=== PATIENT | female | born 1965 | race Caucasian/White ===

== ENCOUNTER 2019-12-03 20:07 | Inpatient (IN) ==
[2019-12-03] MEDS ORDERED: Ipratropium/Albuterol Neb 3 ML IH ONE (20:15)
[2019-12-03] MEDS ORDERED: Dexamethasone 4 MG/ML VIAL IVP STA (20:17)
[2019-12-03 20:34] LABS: INR 0.9; Prothrombin Time 10.6 Seconds (9.4-12.1)
[2019-12-03 20:36] LABS: Activated Partial Thrombo Time 29.5 Seconds (26.0-36.0)
[2019-12-03 20:41] LABS: Basophils % 0.1 %; Hematocrit 41.6 % (35.3-44.9); Immature Granulocytes % 0.6 % (0-4); Lymphocytes # 0.9 K/mcL (0.6-4.6); Lymphocytes % 5.3 %; Mean Corpuscular HGB Conc 31.3 g/dL (31.6-35.5); Mean Corpuscular Hemoglobin 30.9 pg (28.0-33.3); Mean Corpuscular Volume 98.8 fL (83.0-100.0); Mean Platelet Volume 10.4 fL (9.4-12.4); Monocytes # 0.6 K/mcL (0.0-1.3); Monocytes % 3.4 %; Neutrophils # 14.9 K/mcL (1.6-8.9); Platelet Count 244 K/mcL (140-400); Red Blood Count 4.21 M/mcL (3.82-4.97); Red Cell Distribution Width 13.1 % (11.5-14.5); Segmented Neutrophils % 90.6 %; White Blood Count 16.4 K/mcL (4.3-11.1)
[2019-12-03 20:48] LABS: Alanine Aminotransferase 77 Units/L (7-52); Albumin 2.5 g/dL (3.5-5.7); Albumin/Globulin Ratio 0.7 (1.1-2.2); Alkaline Phosphatase 307 Units/L (34-104); Aspartate Amino Transferase 51 Units/L (13-39); BUN/Creatinine Ratio 34 (6-26); Bilirubin,Direct 0.3 mg/dL (0.0-0.2); Bilirubin,Indirect 0.4 mg/dL (0.0-1.0); Bilirubin,Total 0.7 mg/dL (0.3-1.0); Blood Urea Nitrogen 30 mg/dL (6-20); C-Reactive Protein 149 mg/L (Less than 10); Calcium 8.9 mg/dL (8.6-10.3); Carbon Dioxide 29 mEq/L (23-29); Chloride 100 mEq/L (98-107); Globulin 3.6 g/dL (2.4-3.5); Glucose 153 mg/dL (70-105); Lactate Dehydrogenase 468 Units/L (140-271); Magnesium 1.7 mg/dL (1.6-2.6); Osmolality,Calculated 297 (280-300); Phosphorous 4.2 mg/dL (2.7-4.5); Potassium 4.5 mEq/L (3.5-5.1); Sodium 139 mEq/L (136-145); Total Protein 6.1 g/dL (6.4-8.9); eGFR For African Americans > 60 (> 60); eGFR For Non-African Americans > 60 (> 60)
[2019-12-03 20:58] LABS: Troponin I 0.05 ng/mL (< 0.04)
[2019-12-03 21:15] LABS: Ferritin 688 ng/mL (10-120)
[2019-12-03 21:50] LABS: Bacteria,Urine Few per hpf (None-Few); Bilirubin,Urine Negative (Negative); Blood,Urine Small (Negative); Clarity,Urine Clear (Clear); Color,Urine Yellow (Yellow); Glucose,Urine (UA) 50 mg/dL (Normal); Granular Casts,Urine Moderate per lpf (None Seen); Ketones,Urine Negative (Negative); Leukocyte Esterase,Urine Negative (Negative); Mucus,Urine Few per lpf (None-Few); Nitrite,Urine Negative (Negative); PH,Urine 6.5 pH Units (5.0-8.0); Protein,Urine >=600 mg/dL (Neg-Trace); Specific Gravity,Urine 1.028 (1.010-1.025); Squamous Epithelial Cell,Urine Few per hpf (None-Few); Urobilinogen,Urine Normal (Normal)
[2019-12-03] MEDS ORDERED: Ondansetron ODT 4 MG TAB.RAPDIS SL PRN (23:17)
[2019-12-03] MEDS ORDERED: Naloxone 0.4 MG/ML INJ IVP PRN (23:17)
[2019-12-03] MEDS ORDERED: Acetaminophen 325 MG TABLET PO PRN (23:51)
[2019-12-04] MEDS ORDERED: Acetaminophen IV 1,000 MG/100 ML INFUS..BTL IVPB ONE (00:25)
[2019-12-04 01:18] LABS: Basophils % 0.1 %; Hemoglobin 12.2 g/dL (11.5-15.4); Immature Granulocytes % 0.5 % (0-4); Lymphocytes # 0.3 K/mcL (0.6-4.6); Lymphocytes % 2.4 %; Mean Corpuscular HGB Conc 29.8 g/dL (31.6-35.5); Mean Corpuscular Hemoglobin 29.6 pg (28.0-33.3); Mean Corpuscular Volume 99.5 fL (83.0-100.0); Mean Platelet Volume 10.4 fL (9.4-12.4); Monocytes # 0.5 K/mcL (0.0-1.3); Monocytes % 3.7 %; Neutrophils # 11.5 K/mcL (1.6-8.9); Platelet Count 167 K/mcL (140-400); Red Blood Count 4.12 M/mcL (3.82-4.97); Red Cell Distribution Width 13.2 % (11.5-14.5); Segmented Neutrophils % 93.3 %; White Blood Count 12.3 K/mcL (4.3-11.1)
[2019-12-04 01:49] LABS: Troponin I 0.18 ng/mL (< 0.04)
[2019-12-04 01:53] LABS: Alanine Aminotransferase 62 Units/L (7-52); Albumin 2.5 g/dL (3.5-5.7); Albumin/Globulin Ratio 0.8 (1.1-2.2); Alkaline Phosphatase 251 Units/L (34-104); Aspartate Amino Transferase 48 Units/L (13-39); BUN/Creatinine Ratio 36 (6-26); Bilirubin,Total 0.6 mg/dL (0.3-1.0); Blood Urea Nitrogen 31 mg/dL (6-20); Calcium 8.8 mg/dL (8.6-10.3); Carbon Dioxide 24 mEq/L (23-29); Chloride 101 mEq/L (98-107); Globulin 3.2 g/dL (2.4-3.5); Glucose 131 mg/dL (70-105); Osmolality,Calculated 294 (280-300); Potassium 4.7 mEq/L (3.5-5.1); Sodium 138 mEq/L (136-145); Total Protein 5.7 g/dL (6.4-8.9); eGFR For African Americans > 60 (> 60); eGFR For Non-African Americans > 60 (> 60)
[2019-12-04] MEDS ORDERED: *HR* Heparin 5,000 UNIT/ML VIAL IVP PRN ×2 (03:19)
[2019-12-04] MEDS ORDERED: *HR* Heparin 5,000 UNIT/ML VIAL IVP ONE (03:19)
[2019-12-04 05:44] LABS: Heparin anti-factor XA UFH < 0.04 IU/mL (0.30-0.70)
[2019-12-04 05:45] LABS: Prothrombin Time 10.8 Seconds (9.4-12.1)
[2019-12-04] MEDS ORDERED: Azithromycin 500 MG in D5% in Water 250 ML IVPB SCH (06:00)
[2019-12-04] MEDS: Heparin 25,000UNIT/250ML 1/2NS 25,000 UNIT/250 ML IV.SOLN IVC SCH ×2 (06:00→20:31)
[2019-12-04] MEDS: cefTRIAXone 1,000 MG in Water for inj. (sterile) 10 ML IVP SCH (07:39)
[2019-12-04] MEDS ORDERED: Furosemide 40 MG TABLET PO SCH (09:00)
[2019-12-04] MEDS ORDERED: Dexamethasone 4 MG/ML VIAL IVP SCH (09:00)
[2019-12-04 09:57] LABS: ABG Base Excess 3 mEq/L (-2 to 3); ABG HCO3 30 mEq/L (21-27); ABG Oxygen Saturation 85 % (95-98); ABG PCO2 56 mmHg (35-45); ABG PH 7.34 pH Units (7.32-7.45); ABG PO2 54 mmHg (85-104); ABG TCO2 32 mEq/L (20-26)
[2019-12-04] MEDS ORDERED: Ipratropium/Albuterol Neb 3 ML IH ONE (10:10)
[2019-12-04] MEDS ORDERED: Ipratropium/Albuterol Neb 3 ML ONE (10:13)
[2019-12-04] MEDS: Ipratropium 1 PUFF INHALER IH SCH ×3 (10:17→20:16)
[2019-12-04] MEDS: Aspirin Enteric Coated 81 MG Tablet PO SCH (10:33)
[2019-12-04] MEDS: Dexamethasone 4 MG/ML VIAL IVP SCH ×2 (10:33→19:43)
[2019-12-04] MEDS: lisinopriL 10 MG TABLET PO SCH (10:34)
[2019-12-04] MEDS: Furosemide 40 MG/4 ML VIAL IVP SCH (10:47)
[2019-12-04 12:58] LABS: Adenovirus Not Detected (Not Detect); Coronavirus 229E Not Detected (Not Detect); Coronavirus HKU1 Not Detected (Not Detect); Coronavirus NL63 Not Detected (Not Detect); Coronavirus OC43 Not Detected (Not Detect)
[2019-12-04 12:59] LABS: Bordetella Pertussis Not Detected (Not Detect); Chlamydophila pneumoniae Not Detected (Not Detect); Human Metapneumovirus Not Detected (Not Detect); Human Rhinovirus/Enterovirus Not Detected (Not Detect); Influenza A Subtype 2009 H1 Not Detected (Not Detect); Influenza B Not Detected (Not Detect); Mycoplasma pneumoniae Not Detected (Not Detect); Parainfluenza Virus 1 Not Detected (Not Detect); Parainfluenza Virus 2 Not Detected (Not Detect); Parainfluenza Virus 3 Not Detected (Not Detect); Parainfluenza Virus 4 Not Detected (Not Detect); Respiratory Syncytial Virus Not Detected (Not Detect); SARS-CoV-2 DETECTED (Not Detect)
[2019-12-04] MEDS: FentaNYL (PF) 1,000 MCG/100 ML IV.SOLN IVC SCH (13:21)
[2019-12-04] MEDS: Midazolam HCl 50 MG/100 ML IV.SOLN IVC SCH (13:23)
[2019-12-04] MEDS ORDERED: *HR* Midazolam HCl 5 MG/5 ML VIAL IVP ONE (14:35)
[2019-12-04] MEDS ORDERED: *HR* Propofol 200 MG/20 ML VIAL IVP ONE (14:35)
[2019-12-04] MEDS ORDERED: Lidocaine -MPF 2% 5 ML VIAL SQ ONE (14:35)
[2019-12-04] MEDS ORDERED: *HR* Rocuronium Bromide 50 MG/5 ML VIAL IVP ONE ×2 (14:35→14:39)
[2019-12-04] MEDS: Albumin 25% 25gram/100mL 25 GM/100 ML IV.SOLN IVC SCH ×2 (14:46→19:26)
[2019-12-04] MEDS: Cisatracurium 200 MG in 0.9 % Sodium Chloride 180 ML IVC SCH ×2 (14:47→21:36)
[2019-12-04] MEDS ORDERED: Remdesivir 200 MG in 0.9 % Sodium Chloride 210 ML IVPB ONE (15:00)
[2019-12-04 15:16] LABS: ABG Base Excess 5 mEq/L (-2 to 3); ABG HCO3 30 mEq/L (21-27); ABG Oxygen Saturation 97 % (95-98); ABG PCO2 43 mmHg (35-45); ABG PH 7.44 pH Units (7.32-7.45); ABG PO2 91 mmHg (85-104); ABG TCO2 31 mEq/L (20-26); Blood Gas Modality ASSIST CONTROL; Blood Gas VT 450 cc
[2019-12-04] MEDS ORDERED: Artificial Tears SOLN 15 ML BOTTLE BOTH EYES PRN (18:22)
[2019-12-04] MEDS: Chlorhexidine Rinse 15 ML MOUTHWASH MM SCH (19:43)
[2019-12-04] MEDS: Artificial Tears SOLN 15 ML BOTTLE BOTH EYES SCH ×2 (19:44→23:19)
[2019-12-04 20:29] LABS: ABG Base Excess 6 mEq/L (-2 to 3); ABG HCO3 32 mEq/L (21-27); ABG Oxygen Saturation 95 % (95-98); ABG PCO2 52 mmHg (35-45); ABG PO2 75 mmHg (85-104); ABG TCO2 34 mEq/L (20-26); Blood Gas VT 400 cc
[2019-12-04] MEDS: Doxycycline 100 MG in 0.9 % Sodium Chloride Mini Bag 100 ML IVPB SCH (21:55)
[2019-12-04] MEDS: Norepinephrine 4 MG/254 ML IV.SOLN IVC SCH (22:59)
[2019-12-05] MEDS: FentaNYL (PF) 1,000 MCG/100 ML IV.SOLN IVC SCH ×2 (03:08→17:34)
[2019-12-05] MEDS: Artificial Tears SOLN 15 ML BOTTLE BOTH EYES SCH ×6 (03:08→23:01)
[2019-12-05] MEDS: Ipratropium 1 PUFF INHALER IH SCH ×4 (03:20→22:05)
[2019-12-05 03:35] LABS: Hematocrit 31.8 % (35.3-44.9); Immature Granulocytes % 0.5 % (0-4); Lymphocytes # 0.4 K/mcL (0.6-4.6); Lymphocytes % 5.4 %; Mean Corpuscular HGB Conc 30.8 g/dL (31.6-35.5); Mean Corpuscular Hemoglobin 29.9 pg (28.0-33.3); Mean Platelet Volume 10.2 fL (9.4-12.4); Monocytes # 0.3 K/mcL (0.0-1.3); Monocytes % 3.4 %; Neutrophils # 7.3 K/mcL (1.6-8.9); Platelet Count 125 K/mcL (140-400); Red Blood Count 3.28 M/mcL (3.82-4.97); Red Cell Distribution Width 13.4 % (11.5-14.5); Segmented Neutrophils % 90.7 %
[2019-12-05 03:38] LABS: VBG Ionized Calcium 1.13 mmol/L (1.15-1.35)
[2019-12-05 03:46] LABS: Hemoglobin 9.8 g/dL (11.5-15.4)
[2019-12-05 03:54] LABS: ABG Base Excess 5 mEq/L (-2 to 3); ABG HCO3 30 mEq/L (21-27); ABG Oxygen Saturation 96 % (95-98); ABG PCO2 45 mmHg (35-45); ABG PH 7.43 pH Units (7.32-7.45); ABG PO2 80 mmHg (85-104); ABG TCO2 31 mEq/L (20-26); Blood Gas Modality AF; Blood Gas VT 400 cc
[2019-12-05 03:59] LABS: Alanine Aminotransferase 37 Units/L (7-52); Albumin 1.9 g/dL (3.5-5.7); Albumin/Globulin Ratio 0.7 (1.1-2.2); Alkaline Phosphatase 173 Units/L (34-104); Aspartate Amino Transferase 36 Units/L (13-39); BUN/Creatinine Ratio 38 (6-26); Bilirubin,Total 0.4 mg/dL (0.3-1.0); Blood Urea Nitrogen 40 mg/dL (6-20); Carbon Dioxide 29 mEq/L (23-29); Chloride 103 mEq/L (98-107); Globulin 2.8 g/dL (2.4-3.5); Glucose 116 mg/dL (70-105); Magnesium 1.7 mg/dL (1.6-2.6); Osmolality,Calculated 301 (280-300); Phosphorous 4.7 mg/dL (2.7-4.5); Potassium 5.1 mEq/L (3.5-5.1); Sodium 140 mEq/L (136-145); Total Protein 4.7 g/dL (6.4-8.9); eGFR For African Americans > 60 (> 60); eGFR For Non-African Americans 54 (> 60)
[2019-12-05] MEDS: Midazolam HCl 50 MG/100 ML IV.SOLN IVC SCH (04:59)
[2019-12-05] MEDS: Cisatracurium 200 MG in 0.9 % Sodium Chloride 180 ML IVC SCH ×3 (05:53→22:59)
[2019-12-05] MEDS: Chlorhexidine Rinse 15 ML MOUTHWASH MM SCH ×2 (07:19→20:10)
[2019-12-05] MEDS: Dexamethasone 4 MG/ML VIAL IVP SCH (07:19)
[2019-12-05] MEDS: lisinopriL 10 MG TABLET PO SCH ×2 (07:19→07:48)
[2019-12-05] MEDS: Aspirin Enteric Coated 81 MG Tablet PO SCH (07:19)
[2019-12-05] MEDS: Furosemide 40 MG/4 ML VIAL IVP SCH (07:20)
[2019-12-05] MEDS: cefTRIAXone 1,000 MG in Water for inj. (sterile) 10 ML IVP SCH (07:20)
[2019-12-05] MEDS: Doxycycline 100 MG in 0.9 % Sodium Chloride Mini Bag 100 ML IVPB SCH ×2 (10:35→21:02)
[2019-12-05 14:47] LABS: Hematocrit 31.6 % (35.3-44.9); Hemoglobin 9.6 g/dL (11.5-15.4)
[2019-12-05] MEDS: Remdesivir 100 MG in 0.9 % Sodium Chloride 230 ML IVPB SCH (15:15)
[2019-12-05] MEDS: Pantoprazole 40 MG VIAL IVP SCH (17:33)
[2019-12-05] MEDS: Norepinephrine 4 MG/254 ML IV.SOLN IVC SCH (20:53)
[2019-12-05] MEDS: Heparin 25,000UNIT/250ML 1/2NS 25,000 UNIT/250 ML IV.SOLN IVC SCH (21:15)
[2019-12-05] MEDS ORDERED: Furosemide 40 MG/4 ML VIAL IVP ONE (21:26)
[2019-12-05] MEDS: *HR* Heparin 5,000 UNIT/ML VIAL SQ SCH (23:01)
[2019-12-06 03:43] LABS: Basophils % 0.4 %; Hemoglobin 10.6 g/dL (11.5-15.4); Immature Granulocytes % 0.9 % (0-4); Lymphocytes # 0.4 K/mcL (0.6-4.6); Lymphocytes % 8.1 %; Mean Corpuscular HGB Conc 31.2 g/dL (31.6-35.5); Mean Corpuscular Hemoglobin 30.3 pg (28.0-33.3); Mean Corpuscular Volume 97.1 fL (83.0-100.0); Mean Platelet Volume 10.6 fL (9.4-12.4); Monocytes # 0.2 K/mcL (0.0-1.3); Monocytes % 4.1 %; Neutrophils # 4.6 K/mcL (1.6-8.9); Platelet Count 131 K/mcL (140-400); Red Cell Distribution Width 13.3 % (11.5-14.5); Segmented Neutrophils % 86.5 %; White Blood Count 5.3 K/mcL (4.3-11.1)
[2019-12-06 03:45] LABS: VBG Ionized Calcium 1.11 mmol/L (1.15-1.35)
[2019-12-06] MEDS: Artificial Tears SOLN 15 ML BOTTLE BOTH EYES SCH ×6 (03:47→23:09)
[2019-12-06 04:04] LABS: Albumin 2.1 g/dL (3.5-5.7); Albumin/Globulin Ratio 0.7 (1.1-2.2); Bilirubin,Total 0.4 mg/dL (0.3-1.0); Calcium 8.5 mg/dL (8.6-10.3); Globulin 3.2 g/dL (2.4-3.5); Magnesium 2.1 mg/dL (1.6-2.6); Phosphorous 5.4 mg/dL (2.7-4.5); Potassium 4.7 mEq/L (3.5-5.1); Total Protein 5.3 g/dL (6.4-8.9)
[2019-12-06] MEDS: Ipratropium 1 PUFF INHALER IH SCH ×4 (04:04→21:50)
[2019-12-06 04:19] LABS: ABG Base Excess 4 mEq/L (-2 to 3); ABG HCO3 31 mEq/L (21-27); ABG Oxygen Saturation 91 % (95-98); ABG PCO2 58 mmHg (35-45); ABG PH 7.33 pH Units (7.32-7.45); ABG PO2 67 mmHg (85-104); ABG TCO2 33 mEq/L (20-26); Blood Gas VT 340 cc
[2019-12-06] MEDS: *HR* Heparin 5,000 UNIT/ML VIAL SQ SCH ×3 (05:29→19:37)
[2019-12-06] MEDS: Pantoprazole 40 MG VIAL IVP SCH ×2 (05:29→17:29)
[2019-12-06] MEDS: FentaNYL (PF) 1,000 MCG/100 ML IV.SOLN IVC SCH ×2 (05:31→15:56)
[2019-12-06] MEDS: Midazolam HCl 50 MG/100 ML IV.SOLN IVC SCH ×2 (05:32→07:16)
[2019-12-06] MEDS: Cisatracurium 200 MG in 0.9 % Sodium Chloride 180 ML IVC SCH ×3 (06:56→23:10)
[2019-12-06] MEDS: Dexamethasone 4 MG/ML VIAL IVP SCH (07:27)
[2019-12-06] MEDS: Chlorhexidine Rinse 15 ML MOUTHWASH MM SCH ×2 (07:27→19:36)
[2019-12-06] MEDS: Furosemide 40 MG/4 ML VIAL IVP SCH (07:28)
[2019-12-06] MEDS: lisinopriL 10 MG TABLET PO SCH (07:28)
[2019-12-06] MEDS: Aspirin Enteric Coated 81 MG Tablet PO SCH (07:28)
[2019-12-06] MEDS: cefTRIAXone 1,000 MG in Water for inj. (sterile) 10 ML IVP SCH (07:28)
[2019-12-06] MEDS ORDERED: 0.9 % Sodium Chloride 250 ML ONE (10:06)
[2019-12-06] MEDS: Doxycycline 100 MG in 0.9 % Sodium Chloride Mini Bag 100 ML IVPB SCH ×2 (10:11→21:01)
[2019-12-06] MEDS: Remdesivir 100 MG in 0.9 % Sodium Chloride 230 ML IVPB SCH (14:36)
[2019-12-06] MEDS: Norepinephrine 4 MG/254 ML IV.SOLN IVC SCH (19:30)
[2019-12-06] MEDS: Docusate Oral Soln 100 MG/10 ML UDC GTUBE SCH (19:36)
[2019-12-07] MEDS: Artificial Tears SOLN 15 ML BOTTLE BOTH EYES SCH ×6 (03:32→23:34)
[2019-12-07] MEDS: FentaNYL (PF) 1,000 MCG/100 ML IV.SOLN IVC SCH ×3 (03:33→17:54)
[2019-12-07 03:40] LABS: Basophils % 0.5 %; Hematocrit 34.2 % (35.3-44.9); Hemoglobin 10.4 g/dL (11.5-15.4); Immature Granulocytes % 4.2 % (0-4); Lymphocytes # 0.5 K/mcL (0.6-4.6); Lymphocytes % 8.2 %; Mean Corpuscular HGB Conc 30.4 g/dL (31.6-35.5); Mean Corpuscular Hemoglobin 29.9 pg (28.0-33.3); Mean Corpuscular Volume 98.3 fL (83.0-100.0); Mean Platelet Volume 10.4 fL (9.4-12.4); Monocytes # 0.3 K/mcL (0.0-1.3); Monocytes % 4.6 %; Neutrophils # 4.7 K/mcL (1.6-8.9); Nucleated Red Blood Cells 0.4 /100 WBC (0); Platelet Count 155 K/mcL (140-400); Red Blood Count 3.48 M/mcL (3.82-4.97); Red Cell Distribution Width 12.9 % (11.5-14.5); Segmented Neutrophils % 82.5 %; White Blood Count 5.7 K/mcL (4.3-11.1)
[2019-12-07 03:41] LABS: VBG Ionized Calcium 1.13 mmol/L (1.15-1.35)
[2019-12-07 04:01] LABS: Albumin 2.2 g/dL (3.5-5.7); Albumin/Globulin Ratio 0.7 (1.1-2.2); Bilirubin,Direct 0.2 mg/dL (0.0-0.2); Bilirubin,Indirect 0.2 mg/dL (0.0-1.0); Bilirubin,Total 0.4 mg/dL (0.3-1.0); Total Protein 5.2 g/dL (6.4-8.9)
[2019-12-07 04:02] LABS: Alanine Aminotransferase 27 Units/L (7-52); Albumin 2.1 g/dL (3.5-5.7); Albumin/Globulin Ratio 0.7 (1.1-2.2); Alkaline Phosphatase 151 Units/L (34-104); Aspartate Amino Transferase 26 Units/L (13-39); BUN/Creatinine Ratio 59 (6-26); Bilirubin,Total 0.4 mg/dL (0.3-1.0); Blood Urea Nitrogen 60 mg/dL (6-20); Calcium 8.2 mg/dL (8.6-10.3); Carbon Dioxide 28 mEq/L (23-29); Chloride 105 mEq/L (98-107); Globulin 3.1 g/dL (2.4-3.5); Glucose 164 mg/dL (70-105); Magnesium 2.2 mg/dL (1.6-2.6); Osmolality,Calculated 313 (280-300); Phosphorous 4.9 mg/dL (2.7-4.5); Potassium 4.5 mEq/L (3.5-5.1); Sodium 141 mEq/L (136-145); Total Protein 5.2 g/dL (6.4-8.9); eGFR For African Americans > 60 (> 60); eGFR For Non-African Americans 56 (> 60)
[2019-12-07] MEDS ORDERED: *HR* Metoprolol 5 MG/5 ML VIAL IVP PRN (04:03)
[2019-12-07] MEDS: Ipratropium 1 PUFF INHALER IH SCH ×4 (04:10→21:51)
[2019-12-07 04:23] LABS: ABG Base Excess 5 mEq/L (-2 to 3); ABG HCO3 32 mEq/L (21-27); ABG Oxygen Saturation 91 % (95-98); ABG PCO2 61 mmHg (35-45); ABG PH 7.33 pH Units (7.32-7.45); ABG PO2 67 mmHg (85-104); ABG TCO2 34 mEq/L (20-26); Blood Gas VT 360 cc
[2019-12-07] MEDS: Pantoprazole 40 MG VIAL IVP SCH ×2 (05:21→16:00)
[2019-12-07] MEDS: *HR* Heparin 5,000 UNIT/ML VIAL SQ SCH (05:21)
[2019-12-07] MEDS ORDERED: *HR* Heparin 5,000 UNIT/ML VIAL IVP PRN ×2 (06:49)
[2019-12-07] MEDS: Docusate Oral Soln 100 MG/10 ML UDC GTUBE SCH ×2 (07:06→20:40)
[2019-12-07] MEDS: Furosemide 40 MG/4 ML VIAL IVP SCH ×2 (07:06→20:40)
[2019-12-07] MEDS: Chlorhexidine Rinse 15 ML MOUTHWASH MM SCH ×2 (07:06→20:40)
[2019-12-07] MEDS: Aspirin Enteric Coated 81 MG Tablet PO SCH (07:07)
[2019-12-07] MEDS: Dexamethasone 4 MG/ML VIAL IVP SCH (07:07)
[2019-12-07] MEDS: cefTRIAXone 1,000 MG in Water for inj. (sterile) 10 ML IVP SCH (07:08)
[2019-12-07] MEDS: Cisatracurium 200 MG in 0.9 % Sodium Chloride 180 ML IVC SCH ×3 (07:32→23:30)
[2019-12-07] MEDS: Heparin 25,000UNIT/250ML 1/2NS 25,000 UNIT/250 ML IV.SOLN IVC SCH (08:52)
[2019-12-07] MEDS: Doxycycline 100 MG in 0.9 % Sodium Chloride Mini Bag 100 ML IVPB SCH ×2 (09:11→23:08)
[2019-12-07] MEDS ORDERED: 0.9 % Sodium Chloride 500 ML ONE (10:09)
[2019-12-07] MEDS: Calcium Gluconate 1gm/50mL 1 GM/50 ML BAG IVPB SCH ×2 (10:39→11:12)
[2019-12-07] MEDS: Remdesivir 100 MG in 0.9 % Sodium Chloride 230 ML IVPB SCH (14:30)
[2019-12-07] MEDS: Norepinephrine 4 MG/254 ML IV.SOLN IVC SCH (23:31)
[2019-12-08] MEDS: FentaNYL (PF) 1,000 MCG/100 ML IV.SOLN IVC SCH ×4 (02:30→21:22)
[2019-12-08] MEDS: Artificial Tears SOLN 15 ML BOTTLE BOTH EYES SCH ×5 (03:05→20:10)
[2019-12-08] MEDS: Ipratropium 1 PUFF INHALER IH SCH ×4 (04:20→21:35)
[2019-12-08 04:28] LABS: ABG Base Excess 3 mEq/L (-2 to 3); ABG HCO3 30 mEq/L (21-27); ABG Oxygen Saturation 91 % (95-98); ABG PCO2 63 mmHg (35-45); ABG PH 7.29 pH Units (7.32-7.45); ABG PO2 71 mmHg (85-104); ABG TCO2 32 mEq/L (20-26); Blood Gas Modality ASSIST CONTROL; Blood Gas VT 360 cc
[2019-12-08 04:37] LABS: Hematocrit 29.4 % (35.3-44.9); Lymphocytes # 0.8 K/mcL (0.6-4.6); Mean Corpuscular HGB Conc 30.6 g/dL (31.6-35.5); Mean Corpuscular Hemoglobin 30.6 pg (28.0-33.3); Mean Platelet Volume 10.6 fL (9.4-12.4); Platelet Count 164 K/mcL (140-400); Red Blood Count 2.94 M/mcL (3.82-4.97); Red Cell Distribution Width 12.9 % (11.5-14.5); White Blood Count 8.1 K/mcL (4.3-11.1)
[2019-12-08 04:38] LABS: VBG Ionized Calcium 1.15 mmol/L (1.15-1.35)
[2019-12-08 04:58] LABS: Alanine Aminotransferase 27 Units/L (7-52); Albumin 1.9 g/dL (3.5-5.7); Albumin/Globulin Ratio 0.7 (1.1-2.2); Alkaline Phosphatase 132 Units/L (34-104); Aspartate Amino Transferase 29 Units/L (13-39); BUN/Creatinine Ratio 69 (6-26); Bilirubin,Total 0.4 mg/dL (0.3-1.0); Blood Urea Nitrogen 73 mg/dL (6-20); Calcium 7.8 mg/dL (8.6-10.3); Carbon Dioxide 28 mEq/L (23-29); Chloride 106 mEq/L (98-107); Globulin 2.6 g/dL (2.4-3.5); Glucose 136 mg/dL (70-105); Magnesium 2.2 mg/dL (1.6-2.6); Osmolality,Calculated 316 (280-300); Phosphorous 4.8 mg/dL (2.7-4.5); Potassium 4.7 mEq/L (3.5-5.1); Sodium 141 mEq/L (136-145); Total Protein 4.5 g/dL (6.4-8.9); eGFR For African Americans > 60 (> 60); eGFR For Non-African Americans 54 (> 60)
[2019-12-08] MEDS: Pantoprazole 40 MG VIAL IVP SCH (05:33)
[2019-12-08 05:45] LABS: Monocytes # 0.2 K/mcL (0.0-1.3); Platelet Estimate Normal (Normal); Reactive Lymphocytes Present (Not Present); Toxic Granulation Present (Not Present)
[2019-12-08] MEDS: Heparin 25,000UNIT/250ML 1/2NS 25,000 UNIT/250 ML IV.SOLN IVC SCH ×2 (06:45→09:50)
[2019-12-08] MEDS: Aspirin Enteric Coated 81 MG Tablet PO SCH (08:16)
[2019-12-08] MEDS: cefTRIAXone 1,000 MG in Water for inj. (sterile) 10 ML IVP SCH (08:16)
[2019-12-08] MEDS: Docusate Oral Soln 100 MG/10 ML UDC GTUBE SCH ×2 (08:16→20:09)
[2019-12-08] MEDS: Furosemide 40 MG/4 ML VIAL IVP SCH ×2 (08:16→20:08)
[2019-12-08] MEDS: Chlorhexidine Rinse 15 ML MOUTHWASH MM SCH ×2 (08:16→20:09)
[2019-12-08] MEDS: Dexamethasone 4 MG/ML VIAL IVP SCH (08:17)
[2019-12-08] MEDS: Midazolam HCl 50 MG/100 ML IV.SOLN IVC SCH (08:38)
[2019-12-08] MEDS: Doxycycline 100 MG in 0.9 % Sodium Chloride Mini Bag 100 ML IVPB SCH (09:03)
[2019-12-08] MEDS ORDERED: Albumin 25% 25gram/100mL 25 GM/100 ML IV.SOLN IVPB ONE (11:20)
[2019-12-08] MEDS: Remdesivir 100 MG in 0.9 % Sodium Chloride 230 ML IVPB SCH (15:11)
[2019-12-09] MEDS: Norepinephrine 4 MG/254 ML IV.SOLN IVC SCH (00:20)
[2019-12-09] MEDS: Artificial Tears SOLN 15 ML BOTTLE BOTH EYES SCH ×6 (00:20→20:48)
[2019-12-09] MEDS: FentaNYL (PF) 1,000 MCG/100 ML IV.SOLN IVC SCH ×4 (02:30→17:54)
[2019-12-09] MEDS: Ipratropium 1 PUFF INHALER IH SCH ×4 (04:00→21:43)
[2019-12-09 04:14] LABS: ABG Base Excess 2 mEq/L (-2 to 3); ABG HCO3 30 mEq/L (21-27); ABG Oxygen Saturation 86 % (95-98); ABG PCO2 68 mmHg (35-45); ABG PH 7.26 pH Units (7.32-7.45); ABG PO2 61 mmHg (85-104); ABG TCO2 32 mEq/L (20-26); Blood Gas Modality ASSIST CONTROL; Blood Gas VT 400 cc
[2019-12-09 06:24] LABS: Hematocrit 26.5 % (35.3-44.9); Hemoglobin 8.1 g/dL (11.5-15.4); Mean Corpuscular HGB Conc 30.6 g/dL (31.6-35.5); Mean Corpuscular Hemoglobin 30.7 pg (28.0-33.3); Mean Corpuscular Volume 100.4 fL (83.0-100.0); Platelet Count 161 K/mcL (140-400); Red Blood Count 2.64 M/mcL (3.82-4.97)
[2019-12-09 06:47] LABS: Alanine Aminotransferase 31 Units/L (7-52); Albumin 2.2 g/dL (3.5-5.7); Albumin/Globulin Ratio 0.9 (1.1-2.2); Alkaline Phosphatase 147 Units/L (34-104); Aspartate Amino Transferase 42 Units/L (13-39); BUN/Creatinine Ratio 76 (6-26); Bilirubin,Total 0.4 mg/dL (0.3-1.0); Blood Urea Nitrogen 81 mg/dL (6-20); Calcium 8.3 mg/dL (8.6-10.3); Carbon Dioxide 27 mEq/L (23-29); Chloride 106 mEq/L (98-107); Globulin 2.4 g/dL (2.4-3.5); Glucose 135 mg/dL (70-105); Magnesium 2.2 mg/dL (1.6-2.6); Osmolality,Calculated 318 (280-300); Phosphorous 4.3 mg/dL (2.7-4.5); Potassium 4.2 mEq/L (3.5-5.1); Sodium 141 mEq/L (136-145); Total Protein 4.6 g/dL (6.4-8.9); eGFR For African Americans > 60 (> 60); eGFR For Non-African Americans 53 (> 60)
[2019-12-09] MEDS: Docusate Oral Soln 100 MG/10 ML UDC GTUBE SCH ×2 (08:10→20:47)
[2019-12-09] MEDS: Chlorhexidine Rinse 15 ML MOUTHWASH MM SCH ×2 (08:10→20:47)
[2019-12-09] MEDS: Aspirin Enteric Coated 81 MG Tablet PO SCH (08:10)
[2019-12-09] MEDS: Dexamethasone 4 MG/ML VIAL IVP SCH (08:11)
[2019-12-09] MEDS: Furosemide 40 MG/4 ML VIAL IVP SCH ×2 (08:12→20:47)
[2019-12-09] MEDS: Pantoprazole 40 MG VIAL IVP SCH (08:12)
[2019-12-09] MEDS: cefTRIAXone 1,000 MG in Water for inj. (sterile) 10 ML IVP SCH (08:13)
[2019-12-09] MEDS ORDERED: Albumin 25% 25gram/100mL 25 GM/100 ML IV.SOLN IVPB ONE (09:26)
[2019-12-09] MEDS: Midazolam HCl 50 MG/100 ML IV.SOLN IVC SCH (13:17)
[2019-12-09] MEDS: Remdesivir 100 MG in 0.9 % Sodium Chloride 230 ML IVPB SCH (15:23)
[2019-12-09 16:12] LABS: VBG Ionized Calcium 1.13 mmol/L (1.15-1.35)
[2019-12-10] MEDS: Artificial Tears SOLN 15 ML BOTTLE BOTH EYES SCH ×7 (00:34→23:38)
[2019-12-10] MEDS: Ipratropium 1 PUFF INHALER IH SCH ×4 (03:29→22:13)
[2019-12-10 04:25] LABS: ABG Base Excess 1 mEq/L (-2 to 3); ABG HCO3 29 mEq/L (21-27); ABG Oxygen Saturation 93 % (95-98); ABG PCO2 63 mmHg (35-45); ABG PH 7.28 pH Units (7.32-7.45); ABG PO2 80 mmHg (85-104); ABG TCO2 31 mEq/L (20-26); Blood Gas Modality ASSIST CONTROL; Blood Gas VT 430 cc
[2019-12-10] MEDS: FentaNYL (PF) 1,000 MCG/100 ML IV.SOLN IVC SCH (05:04)
[2019-12-10 06:07] LABS: Hematocrit 25.6 % (35.3-44.9); Hemoglobin 7.9 g/dL (11.5-15.4); Mean Corpuscular HGB Conc 30.9 g/dL (31.6-35.5); Mean Corpuscular Hemoglobin 30.6 pg (28.0-33.3); Mean Corpuscular Volume 99.2 fL (83.0-100.0); Mean Platelet Volume 10.9 fL (9.4-12.4); Nucleated Red Blood Cells 0.3 /100 WBC (0); Platelet Count 150 K/mcL (140-400); Red Blood Count 2.58 M/mcL (3.82-4.97); Red Cell Distribution Width 13.2 % (11.5-14.5); White Blood Count 6.9 K/mcL (4.3-11.1)
[2019-12-10 06:31] LABS: Alanine Aminotransferase 26 Units/L (7-52); Albumin 2.4 g/dL (3.5-5.7); Alkaline Phosphatase 144 Units/L (34-104); Aspartate Amino Transferase 29 Units/L (13-39); BUN/Creatinine Ratio 88 (6-26); Bilirubin,Total 0.5 mg/dL (0.3-1.0); Blood Urea Nitrogen 84 mg/dL (6-20); Calcium 8.4 mg/dL (8.6-10.3); Carbon Dioxide 27 mEq/L (23-29); Chloride 105 mEq/L (98-107); Globulin 2.4 g/dL (2.4-3.5); Glucose 139 mg/dL (70-105); Magnesium 2.1 mg/dL (1.6-2.6); Osmolality,Calculated 322 (280-300); Phosphorous 4.3 mg/dL (2.7-4.5); Potassium 4.5 mEq/L (3.5-5.1); Sodium 142 mEq/L (136-145); Total Protein 4.8 g/dL (6.4-8.9); eGFR For African Americans > 60 (> 60); eGFR For Non-African Americans > 60 (> 60)
[2019-12-10 07:15] LABS: Lymphocytes # 1.1 K/mcL (0.6-4.6); Monocytes # 0.4 K/mcL (0.0-1.3); Neutrophils # 5.4 K/mcL (1.6-8.9)
[2019-12-10 07:16] LABS: Platelet Estimate Normal (Normal); Reactive Lymphocytes Present (Not Present); Toxic Granulation Present (Not Present)
[2019-12-10] MEDS: Norepinephrine 4 MG/254 ML IV.SOLN IVC SCH ×2 (07:21→20:31)
[2019-12-10] MEDS: Heparin 25,000UNIT/250ML 1/2NS 25,000 UNIT/250 ML IV.SOLN IVC SCH (07:22)
[2019-12-10] MEDS: Docusate Oral Soln 100 MG/10 ML UDC GTUBE SCH ×2 (08:13→20:06)
[2019-12-10] MEDS: Chlorhexidine Rinse 15 ML MOUTHWASH MM SCH ×2 (08:13→20:06)
[2019-12-10] MEDS: Aspirin Enteric Coated 81 MG Tablet PO SCH (08:13)
[2019-12-10] MEDS: cefTRIAXone 1,000 MG in Water for inj. (sterile) 10 ML IVP SCH (08:14)
[2019-12-10] MEDS: Dexamethasone 4 MG/ML VIAL IVP SCH (08:14)
[2019-12-10] MEDS: Furosemide 40 MG/4 ML VIAL IVP SCH ×2 (08:15→20:06)
[2019-12-10] MEDS: Pantoprazole 40 MG VIAL IVP SCH (08:15)
[2019-12-10] MEDS ORDERED: *HR* Alteplase (Cathflo) 2 MG VIAL IVP ONE (09:26)
[2019-12-10] MEDS ORDERED: Albumin 25% 25gram/100mL 25 GM/100 ML IV.SOLN IVPB ONE (09:29)
[2019-12-10] MEDS: FentaNYL (PF) 2,500 MCG/50 ML IV.SOLN IVC SCH ×2 (10:04→21:44)
[2019-12-10] MEDS: Nystatin POWDER 30 GM BOTTLE TP SCH ×3 (11:47→20:07)
[2019-12-10] MEDS: Cisatracurium 200 MG in 0.9 % Sodium Chloride 180 ML IVC SCH (13:16)
[2019-12-10] MEDS: Midazolam HCl 50 MG/100 ML IV.SOLN IVC SCH (13:16)
[2019-12-10] MEDS: Remdesivir 100 MG in 0.9 % Sodium Chloride 230 ML IVPB SCH (15:19)
[2019-12-10 18:42] LABS: Hematocrit 25.3 % (35.3-44.9); Hemoglobin 7.8 g/dL (11.5-15.4)
[2019-12-11 02:09] LABS: Heparin anti-factor XA UFH 0.58 IU/mL (0.30-0.70)
[2019-12-11] MEDS: Heparin 25,000UNIT/250ML 1/2NS 25,000 UNIT/250 ML IV.SOLN IVC SCH (02:59)
[2019-12-11] MEDS: Ipratropium 1 PUFF INHALER IH SCH ×4 (03:41→22:03)
[2019-12-11] MEDS: Artificial Tears SOLN 15 ML BOTTLE BOTH EYES SCH ×6 (04:19→23:10)
[2019-12-11 04:45] LABS: VBG Ionized Calcium 1.12 mmol/L (1.15-1.35)
[2019-12-11 04:52] LABS: Hematocrit 24.6 % (35.3-44.9); Hemoglobin 7.5 g/dL (11.5-15.4); Mean Corpuscular HGB Conc 30.5 g/dL (31.6-35.5); Mean Corpuscular Hemoglobin 29.6 pg (28.0-33.3); Mean Corpuscular Volume 97.2 fL (83.0-100.0); Mean Platelet Volume 11.1 fL (9.4-12.4); Nucleated Red Blood Cells 0.2 /100 WBC (0); Platelet Count 158 K/mcL (140-400); Red Blood Count 2.53 M/mcL (3.82-4.97); Red Cell Distribution Width 13.2 % (11.5-14.5); White Blood Count 8.6 K/mcL (4.3-11.1)
[2019-12-11 04:53] LABS: ABG Base Excess 2 mEq/L (-2 to 3); ABG HCO3 28 mEq/L (21-27); ABG Oxygen Saturation 92 % (95-98); ABG PCO2 53 mmHg (35-45); ABG PH 7.33 pH Units (7.32-7.45); ABG PO2 69 mmHg (85-104); ABG TCO2 30 mEq/L (20-26); Blood Gas Modality ASSIST CONTROL; Blood Gas VT 450 cc
[2019-12-11 05:12] LABS: Alanine Aminotransferase 24 Units/L (7-52); Albumin 2.4 g/dL (3.5-5.7); Albumin/Globulin Ratio 1.1 (1.1-2.2); Alkaline Phosphatase 129 Units/L (34-104); Aspartate Amino Transferase 22 Units/L (13-39); BUN/Creatinine Ratio 99 (6-26); Bilirubin,Total 0.6 mg/dL (0.3-1.0); Blood Urea Nitrogen 84 mg/dL (6-20); Calcium 8.1 mg/dL (8.6-10.3); Carbon Dioxide 26 mEq/L (23-29); Chloride 106 mEq/L (98-107); Globulin 2.2 g/dL (2.4-3.5); Glucose 108 mg/dL (70-105); Magnesium 2.1 mg/dL (1.6-2.6); Osmolality,Calculated 322 (280-300); Phosphorous 3.9 mg/dL (2.7-4.5); Potassium 4.1 mEq/L (3.5-5.1); Sodium 143 mEq/L (136-145); Total Protein 4.6 g/dL (6.4-8.9); eGFR For African Americans > 60 (> 60); eGFR For Non-African Americans > 60 (> 60)
[2019-12-11 05:23] LABS: Lymphocytes # 0.7 K/mcL (0.6-4.6); Monocytes # 0.3 K/mcL (0.0-1.3); Neutrophils # 7.6 K/mcL (1.6-8.9)
[2019-12-11 05:26] LABS: Platelet Estimate Normal (Normal); Smudge Cells Present (Not Present)
[2019-12-11] MEDS: Chlorhexidine Rinse 15 ML MOUTHWASH MM SCH ×2 (07:36→19:22)
[2019-12-11] MEDS: Dexamethasone 4 MG/ML VIAL IVP SCH (07:36)
[2019-12-11] MEDS: Docusate Oral Soln 100 MG/10 ML UDC GTUBE SCH ×2 (07:36→19:22)
[2019-12-11] MEDS: Aspirin Enteric Coated 81 MG Tablet PO SCH (07:36)
[2019-12-11] MEDS: cefTRIAXone 1,000 MG in Water for inj. (sterile) 10 ML IVP SCH (07:37)
[2019-12-11] MEDS: Furosemide 40 MG/4 ML VIAL IVP SCH ×3 (07:38→19:22)
[2019-12-11] MEDS: Pantoprazole 40 MG VIAL IVP SCH (07:38)
[2019-12-11] MEDS: Nystatin POWDER 30 GM BOTTLE TP SCH ×3 (07:38→19:23)
[2019-12-11] MEDS ORDERED: Albumin 25% 12.5gm/50mL 12.5 GM/50 ML IV.SOLN IVPB SCH (08:45)
[2019-12-11] MEDS ORDERED: Furosemide 40 MG/4 ML VIAL IVP ONE (08:46)
[2019-12-11] MEDS: FentaNYL (PF) 2,500 MCG/50 ML IV.SOLN IVC SCH ×2 (09:55→22:35)
[2019-12-11 10:59] LABS: Bilirubin,Urine Negative (Negative); Blood,Urine Negative (Negative); Clarity,Urine Turbid (Clear); Color,Urine Light-Yellow (Yellow); Glucose,Urine (UA) Normal (Normal); Hyaline Casts,Urine Moderate per lpf (None Seen); Ketones,Urine Negative (Negative); Leukocyte Esterase,Urine Negative (Negative); Mucus,Urine Few per lpf (None-Few); Nitrite,Urine Negative (Negative); Protein,Urine 50 mg/dL (Neg-Trace); RBC,Urine 0-3 per hpf (0-3); Specific Gravity,Urine 1.016 (1.010-1.025); Squamous Epithelial Cell,Urine Moderate per hpf (None-Few); Urobilinogen,Urine Normal (Normal)
[2019-12-11] MEDS: Midazolam HCl 50 MG/100 ML IV.SOLN IVC SCH (13:37)
[2019-12-11] MEDS: Cisatracurium 200 MG in 0.9 % Sodium Chloride 180 ML IVC SCH (13:38)
[2019-12-11] MEDS: Remdesivir 100 MG in 0.9 % Sodium Chloride 230 ML IVPB SCH (14:26)
[2019-12-11] MEDS: Albumin 25% 12.5gm/50mL 12.5 GM/50 ML IV.SOLN IVPB SCH (19:46)
[2019-12-11] MEDS: Norepinephrine 4 MG/254 ML IV.SOLN IVC SCH (21:31)
[2019-12-12] MEDS: Artificial Tears SOLN 15 ML BOTTLE BOTH EYES SCH ×5 (04:10→19:50)
[2019-12-12 04:23] LABS: Basophils # 0.1 K/mcL (0.0-0.2); Basophils % 0.4 %; Eosinophils # 0.3 K/mcL (0.0-0.6); Eosinophils % 1.1 %; Hematocrit 29.2 % (35.3-44.9); Immature Granulocytes % 11.7 % (0-4); Lymphocytes # 1.3 K/mcL (0.6-4.6); Lymphocytes % 5.4 %; Mean Corpuscular HGB Conc 30.8 g/dL (31.6-35.5); Mean Corpuscular Hemoglobin 30.7 pg (28.0-33.3); Mean Corpuscular Volume 99.7 fL (83.0-100.0); Mean Platelet Volume 11.2 fL (9.4-12.4); Monocytes # 0.3 K/mcL (0.0-1.3); Monocytes % 1.1 %; Neutrophils # 19.1 K/mcL (1.6-8.9); Nucleated Red Blood Cells 0.4 /100 WBC (0); Platelet Count 247 K/mcL (140-400); Red Blood Count 2.93 M/mcL (3.82-4.97); Red Cell Distribution Width 13.8 % (11.5-14.5); Segmented Neutrophils % 80.3 %
[2019-12-12 04:24] LABS: VBG Ionized Calcium 1.11 mmol/L (1.15-1.35)
[2019-12-12 04:42] LABS: Alanine Aminotransferase 26 Units/L (7-52); Albumin 2.6 g/dL (3.5-5.7); Alkaline Phosphatase 151 Units/L (34-104); Aspartate Amino Transferase 22 Units/L (13-39); BUN/Creatinine Ratio 94 (6-26); Bilirubin,Total 0.7 mg/dL (0.3-1.0); Blood Urea Nitrogen 96 mg/dL (6-20); Calcium 8.3 mg/dL (8.6-10.3); Carbon Dioxide 26 mEq/L (23-29); Chloride 105 mEq/L (98-107); Globulin 2.7 g/dL (2.4-3.5); Glucose 103 mg/dL (70-105); Magnesium 1.9 mg/dL (1.6-2.6); Osmolality,Calculated 322 (280-300); Phosphorous 4.6 mg/dL (2.7-4.5); Potassium 4.1 mEq/L (3.5-5.1); Sodium 141 mEq/L (136-145); Total Protein 5.3 g/dL (6.4-8.9); eGFR For African Americans > 60 (> 60); eGFR For Non-African Americans 56 (> 60)
[2019-12-12] MEDS: Ipratropium 1 PUFF INHALER IH SCH ×4 (04:58→21:58)
[2019-12-12 05:21] LABS: ABG Base Excess 0 mEq/L (-2 to 3); ABG HCO3 28 mEq/L (21-27); ABG Oxygen Saturation 86 % (95-98); ABG PCO2 58 mmHg (35-45); ABG PH 7.29 pH Units (7.32-7.45); ABG PO2 59 mmHg (85-104); ABG TCO2 29 mEq/L (20-26); Blood Gas Modality ASSIST CONTROL; Blood Gas VT 450 cc
[2019-12-12 05:39] LABS: White Blood Count 23.8 K/mcL (4.3-11.1)
[2019-12-12] MEDS: cefTRIAXone 1,000 MG in Water for inj. (sterile) 10 ML IVP SCH (07:48)
[2019-12-12] MEDS: Pantoprazole 40 MG VIAL IVP SCH (07:49)
[2019-12-12] MEDS: Furosemide 40 MG/4 ML VIAL IVP SCH ×2 (07:49→21:59)
[2019-12-12] MEDS: Dexamethasone 4 MG/ML VIAL IVP SCH (07:50)
[2019-12-12] MEDS: Docusate Oral Soln 100 MG/10 ML UDC GTUBE SCH ×2 (07:50→19:49)
[2019-12-12] MEDS: Chlorhexidine Rinse 15 ML MOUTHWASH MM SCH ×2 (07:50→19:49)
[2019-12-12] MEDS: Nystatin POWDER 30 GM BOTTLE TP SCH ×3 (08:27→19:50)
[2019-12-12] MEDS: Aspirin Enteric Coated 81 MG Tablet PO SCH (08:56)
[2019-12-12] MEDS ORDERED: *HR* Heparin 5,000 UNIT/ML VIAL IVP PRN ×2 (10:30)
[2019-12-12] MEDS: Albumin 25% 12.5gm/50mL 12.5 GM/50 ML IV.SOLN IVPB SCH ×2 (11:01→20:39)
[2019-12-12] MEDS: Heparin 25,000UNIT/250ML 1/2NS 25,000 UNIT/250 ML IV.SOLN IVC SCH (11:24)
[2019-12-12] MEDS: Vancomycin 2,000 MG/520 ML IV.SOLN IVPB SCH ×2 (11:35→23:31)
[2019-12-12] MEDS: Piperacillin/Tazobactam 3.375 GM in 0.9 % Sodium Chloride Mini Bag 100 ML IVPB SCH ×2 (11:42→19:49)
[2019-12-12] MEDS: FentaNYL (PF) 2,500 MCG/50 ML IV.SOLN IVC SCH ×2 (11:51→21:50)
[2019-12-12 12:24] LABS: Hematocrit 30.5 % (35.3-44.9); Hemoglobin 9.2 g/dL (11.5-15.4); Mean Corpuscular HGB Conc 30.2 g/dL (31.6-35.5); Mean Corpuscular Hemoglobin 29.7 pg (28.0-33.3); Mean Corpuscular Volume 98.4 fL (83.0-100.0); Mean Platelet Volume 11.4 fL (9.4-12.4); Nucleated Red Blood Cells 0.2 /100 WBC (0); Platelet Count 214 K/mcL (140-400); Red Cell Distribution Width 14.2 % (11.5-14.5); White Blood Count 24.4 K/mcL (4.3-11.1)
[2019-12-12 12:39] LABS: Heparin anti-factor XA UFH 0.21 IU/mL (0.30-0.70); INR 1.1; Prothrombin Time 13.2 Seconds (9.4-12.1)
[2019-12-12 13:06] LABS: Lymphocytes # 1.2 K/mcL (0.6-4.6); Monocytes # 0.2 K/mcL (0.0-1.3); Neutrophils # 22.5 K/mcL (1.6-8.9)
[2019-12-12 13:07] LABS: Platelet Estimate Normal (Normal)
[2019-12-12] MEDS: Remdesivir 100 MG in 0.9 % Sodium Chloride 230 ML IVPB SCH (14:52)
[2019-12-12] MEDS: Cisatracurium 200 MG in 0.9 % Sodium Chloride 180 ML IVC SCH (19:47)
[2019-12-12] MEDS: Midazolam HCl 50 MG/100 ML IV.SOLN IVC SCH (19:47)
[2019-12-12] MEDS ORDERED: Albumin 25% 12.5gm/50mL 12.5 GM/50 ML IV.SOLN ONE (20:39)
[2019-12-12] MEDS: Norepinephrine 4 MG/254 ML IV.SOLN IVC SCH (23:33)
[2019-12-13] MEDS: Heparin 25,000UNIT/250ML 1/2NS 25,000 UNIT/250 ML IV.SOLN IVC SCH ×3 (00:07→23:28)
[2019-12-13] MEDS: Artificial Tears SOLN 15 ML BOTTLE BOTH EYES SCH ×7 (00:07→23:29)
[2019-12-13] MEDS: Piperacillin/Tazobactam 3.375 GM in 0.9 % Sodium Chloride Mini Bag 100 ML IVPB SCH ×3 (03:22→18:21)
[2019-12-13] MEDS: Ipratropium 1 PUFF INHALER IH SCH ×4 (03:41→21:52)
[2019-12-13 03:43] LABS: Hematocrit 28.6 % (35.3-44.9); Hemoglobin 8.5 g/dL (11.5-15.4); Mean Corpuscular HGB Conc 29.7 g/dL (31.6-35.5); Mean Corpuscular Hemoglobin 29.6 pg (28.0-33.3); Mean Corpuscular Volume 99.7 fL (83.0-100.0); Mean Platelet Volume 11.4 fL (9.4-12.4); Nucleated Red Blood Cells 0.2 /100 WBC (0); Platelet Count 187 K/mcL (140-400); Red Blood Count 2.87 M/mcL (3.82-4.97); Red Cell Distribution Width 14.4 % (11.5-14.5); White Blood Count 19.9 K/mcL (4.3-11.1)
[2019-12-13 03:47] LABS: VBG Ionized Calcium 1.09 mmol/L (1.15-1.35)
[2019-12-13 04:02] LABS: Albumin 2.8 g/dL (3.5-5.7); Albumin/Globulin Ratio 1.1 (1.1-2.2); Bilirubin,Total 0.7 mg/dL (0.3-1.0); Calcium 8.4 mg/dL (8.6-10.3); Globulin 2.6 g/dL (2.4-3.5); Phosphorous 5.4 mg/dL (2.7-4.5); Potassium 4.2 mEq/L (3.5-5.1); Total Protein 5.4 g/dL (6.4-8.9)
[2019-12-13 04:08] LABS: ABG Base Excess -3 mEq/L (-2 to 3); ABG HCO3 26 mEq/L (21-27); ABG Oxygen Saturation 85 % (95-98); ABG PCO2 71 mmHg (35-45); ABG PH 7.18 pH Units (7.32-7.45); ABG PO2 64 mmHg (85-104); ABG TCO2 28 mEq/L (20-26); Blood Gas VT 450 cc
[2019-12-13 04:22] LABS: Eosinophils # 0.4 K/mcL (0.0-0.6); Lymphocytes # 0.4 K/mcL (0.6-4.6); Monocytes # 0.4 K/mcL (0.0-1.3); Neutrophils # 18.3 K/mcL (1.6-8.9)
[2019-12-13 04:23] LABS: Platelet Estimate Normal (Normal)
[2019-12-13] MEDS: FentaNYL (PF) 2,500 MCG/50 ML IV.SOLN IVC SCH ×2 (05:39→18:21)
[2019-12-13] MEDS: Cisatracurium 200 MG in 0.9 % Sodium Chloride 180 ML IVC SCH ×2 (06:20→20:41)
[2019-12-13] MEDS: Aspirin Enteric Coated 81 MG Tablet PO SCH (07:41)
[2019-12-13] MEDS: Dexamethasone 4 MG/ML VIAL IVP SCH (07:47)
[2019-12-13] MEDS: Chlorhexidine Rinse 15 ML MOUTHWASH MM SCH ×2 (07:47→19:31)
[2019-12-13] MEDS: Docusate Oral Soln 100 MG/10 ML UDC GTUBE SCH ×2 (07:48→19:31)
[2019-12-13] MEDS: Pantoprazole 40 MG VIAL IVP SCH (07:48)
[2019-12-13] MEDS: Nystatin POWDER 30 GM BOTTLE TP SCH ×3 (07:49→19:31)
[2019-12-13] MEDS: Albumin 25% 12.5gm/50mL 12.5 GM/50 ML IV.SOLN IVPB SCH ×2 (07:56→19:30)
[2019-12-13] MEDS ORDERED: 0.9 % Sodium Chloride 1,000 ML ONE (08:22)
[2019-12-13] MEDS ORDERED: Furosemide 40 MG/4 ML VIAL IVP SCH (09:00)
[2019-12-13] MEDS: Vancomycin 1,500 MG/265 ML IV.SOLN IVPB SCH ×2 (11:09→23:33)
[2019-12-13] MEDS: Midazolam HCl 50 MG/100 ML IV.SOLN IVC SCH (13:11)
[2019-12-13] MEDS: Remdesivir 100 MG in 0.9 % Sodium Chloride 230 ML IVPB SCH (14:44)
[2019-12-13 16:41] LABS: ABG Base Excess -5 mEq/L (-2 to 3); ABG HCO3 25 mEq/L (21-27); ABG Oxygen Saturation 72 % (95-98); ABG PCO2 85 mmHg (35-45); ABG PH 7.08 pH Units (7.32-7.45); ABG PO2 54 mmHg (85-104); ABG TCO2 28 mEq/L (20-26); Blood Gas Modality ASSIST CONTROL; Blood Gas VT 450 cc
[2019-12-13] MEDS: Furosemide 40 MG/4 ML VIAL IVP SCH (19:31)
[2019-12-13] MEDS: Norepinephrine 4 MG/254 ML IV.SOLN IVC SCH (19:32)
[2019-12-14] MEDS: Piperacillin/Tazobactam 3.375 GM in 0.9 % Sodium Chloride Mini Bag 100 ML IVPB SCH ×3 (03:11→18:35)
[2019-12-14] MEDS: Artificial Tears SOLN 15 ML BOTTLE BOTH EYES SCH ×6 (03:12→23:07)
[2019-12-14 03:46] LABS: Hematocrit 26.6 % (35.3-44.9); Mean Corpuscular HGB Conc 30.1 g/dL (31.6-35.5); Mean Corpuscular Hemoglobin 29.7 pg (28.0-33.3); Mean Corpuscular Volume 98.9 fL (83.0-100.0); Mean Platelet Volume 11.2 fL (9.4-12.4); Nucleated Red Blood Cells 0.3 /100 WBC (0); Platelet Count 167 K/mcL (140-400); Red Blood Count 2.69 M/mcL (3.82-4.97); Red Cell Distribution Width 14.4 % (11.5-14.5); White Blood Count 19.2 K/mcL (4.3-11.1)
[2019-12-14 04:07] LABS: Albumin 2.7 g/dL (3.5-5.7); Albumin/Globulin Ratio 1.1 (1.1-2.2); Bilirubin,Total 0.8 mg/dL (0.3-1.0); Calcium 8.1 mg/dL (8.6-10.3); Globulin 2.5 g/dL (2.4-3.5); Potassium 4.3 mEq/L (3.5-5.1); Total Protein 5.2 g/dL (6.4-8.9)
[2019-12-14 04:46] LABS: Lymphocytes # 0.8 K/mcL (0.6-4.6); Neutrophils # 17.7 K/mcL (1.6-8.9)
[2019-12-14] MEDS: Cisatracurium 200 MG in 0.9 % Sodium Chloride 180 ML IVC SCH ×3 (04:46→20:20)
[2019-12-14 04:47] LABS: Platelet Estimate Normal (Normal)
[2019-12-14 05:05] LABS: ABG Base Excess -3 mEq/L (-2 to 3); ABG HCO3 24 mEq/L (21-27); ABG Oxygen Saturation 82 % (95-98); ABG PCO2 48 mmHg (35-45); ABG PH 7.31 pH Units (7.32-7.45); ABG PO2 52 mmHg (85-104); ABG TCO2 25 mEq/L (20-26); Blood Gas Modality ASSIST CONTROL; Blood Gas VT 450 cc
[2019-12-14] MEDS: Ipratropium 1 PUFF INHALER IH SCH ×4 (05:13→22:48)
[2019-12-14] MEDS: FentaNYL (PF) 2,500 MCG/50 ML IV.SOLN IVC SCH ×2 (06:10→18:35)
[2019-12-14] MEDS: Albumin 25% 12.5gm/50mL 12.5 GM/50 ML IV.SOLN IVPB SCH ×2 (07:34→19:54)
[2019-12-14] MEDS: Dexamethasone 4 MG/ML VIAL IVP SCH (07:35)
[2019-12-14] MEDS: Aspirin Enteric Coated 81 MG Tablet PO SCH (07:35)
[2019-12-14] MEDS: Docusate Oral Soln 100 MG/10 ML UDC GTUBE SCH ×2 (07:37→19:54)
[2019-12-14] MEDS: Pantoprazole 40 MG VIAL IVP SCH (07:37)
[2019-12-14] MEDS: Nystatin POWDER 30 GM BOTTLE TP SCH ×3 (07:37→19:55)
[2019-12-14] MEDS: Chlorhexidine Rinse 15 ML MOUTHWASH MM SCH ×2 (07:37→19:54)
[2019-12-14] MEDS: Furosemide 40 MG/4 ML VIAL IVP SCH ×2 (09:53→19:54)
[2019-12-14] MEDS: Heparin 25,000UNIT/250ML 1/2NS 25,000 UNIT/250 ML IV.SOLN IVC SCH (10:56)
[2019-12-14] MEDS: Norepinephrine 4 MG/254 ML IV.SOLN IVC SCH (12:22)
[2019-12-14] MEDS: Midazolam HCl 50 MG/100 ML IV.SOLN IVC SCH (14:36)
[2019-12-14] MEDS: *HR* Heparin 5,000 UNIT/ML VIAL SQ SCH ×2 (14:56→19:54)
[2019-12-15 03:05] LABS: Basophils % 0.1 %; Eosinophils # 0.1 K/mcL (0.0-0.6); Hematocrit 23.7 % (35.3-44.9); Hemoglobin 7.3 g/dL (11.5-15.4); Immature Granulocytes % 3.5 % (0-4); Lymphocytes # 0.7 K/mcL (0.6-4.6); Lymphocytes % 6.9 %; Mean Corpuscular HGB Conc 30.8 g/dL (31.6-35.5); Mean Corpuscular Hemoglobin 29.7 pg (28.0-33.3); Mean Corpuscular Volume 96.3 fL (83.0-100.0); Mean Platelet Volume 10.6 fL (9.4-12.4); Monocytes # 0.3 K/mcL (0.0-1.3); Monocytes % 2.9 %; Nucleated Red Blood Cells 0.3 /100 WBC (0); Platelet Count 159 K/mcL (140-400); Red Blood Count 2.46 M/mcL (3.82-4.97); Red Cell Distribution Width 14.5 % (11.5-14.5); Segmented Neutrophils % 85.6 %; White Blood Count 10.5 K/mcL (4.3-11.1)
[2019-12-15 03:24] LABS: Albumin 2.6 g/dL (3.5-5.7); Albumin/Globulin Ratio 1.1 (1.1-2.2); Bilirubin,Total 0.7 mg/dL (0.3-1.0); Calcium 8.2 mg/dL (8.6-10.3); Globulin 2.3 g/dL (2.4-3.5); Magnesium 1.8 mg/dL (1.6-2.6); Phosphorous 5.3 mg/dL (2.7-4.5); Potassium 3.6 mEq/L (3.5-5.1); Total Protein 4.9 g/dL (6.4-8.9)
[2019-12-15] MEDS: Piperacillin/Tazobactam 3.375 GM in 0.9 % Sodium Chloride Mini Bag 100 ML IVPB SCH ×3 (03:30→18:37)
[2019-12-15] MEDS: Artificial Tears SOLN 15 ML BOTTLE BOTH EYES SCH ×5 (03:30→19:57)
[2019-12-15] MEDS: Ipratropium 1 PUFF INHALER IH SCH ×4 (03:57→22:19)
[2019-12-15] MEDS: Cisatracurium 200 MG in 0.9 % Sodium Chloride 180 ML IVC SCH ×3 (04:05→20:15)
[2019-12-15 04:28] LABS: ABG Base Excess -2 mEq/L (-2 to 3); ABG HCO3 24 mEq/L (21-27); ABG Oxygen Saturation 97 % (95-98); ABG PCO2 46 mmHg (35-45); ABG PH 7.32 pH Units (7.32-7.45); ABG PO2 97 mmHg (85-104); ABG TCO2 25 mEq/L (20-26); Blood Gas VT 450 cc
[2019-12-15] MEDS: *HR* Heparin 5,000 UNIT/ML VIAL SQ SCH (06:29)
[2019-12-15] MEDS: FentaNYL (PF) 2,500 MCG/50 ML IV.SOLN IVC SCH ×2 (08:39→21:09)
[2019-12-15] MEDS: Nystatin POWDER 30 GM BOTTLE TP SCH ×3 (09:07→22:50)
[2019-12-15] MEDS: Albumin 25% 12.5gm/50mL 12.5 GM/50 ML IV.SOLN IVPB SCH ×2 (09:10→19:57)
[2019-12-15] MEDS: Pantoprazole 40 MG VIAL IVP SCH (09:10)
[2019-12-15] MEDS: Docusate Oral Soln 100 MG/10 ML UDC GTUBE SCH ×2 (09:10→19:57)
[2019-12-15] MEDS: Chlorhexidine Rinse 15 ML MOUTHWASH MM SCH ×2 (09:10→19:57)
[2019-12-15] MEDS: Furosemide 40 MG/4 ML VIAL IVP SCH ×2 (12:18→21:21)
[2019-12-15] MEDS: Aspirin 81 MG TAB.CHEW GTUBE SCH (12:18)
[2019-12-15] MEDS: Dexamethasone 4 MG/ML VIAL IVP SCH (12:19)
[2019-12-15] MEDS: Midazolam HCl 50 MG/100 ML IV.SOLN IVC SCH (12:20)
[2019-12-15] MEDS ORDERED: *HR* Heparin 5,000 UNIT/ML VIAL IVP PRN ×2 (13:00)
[2019-12-15] MEDS: Heparin 25,000UNIT/250ML 1/2NS 25,000 UNIT/250 ML IV.SOLN IVC SCH (15:55)
[2019-12-15] MEDS: Norepinephrine 4 MG/254 ML IV.SOLN IVC SCH (19:50)
[2019-12-16] MEDS: Piperacillin/Tazobactam 3.375 GM in 0.9 % Sodium Chloride Mini Bag 100 ML IVPB SCH ×3 (02:45→18:34)
[2019-12-16 04:03] LABS: VBG Ionized Calcium 1.12 mmol/L (1.15-1.35)
[2019-12-16 04:05] LABS: Heparin anti-factor XA UFH 0.84 IU/mL (0.30-0.70)
[2019-12-16] MEDS: Ipratropium 1 PUFF INHALER IH SCH ×4 (04:09→22:33)
[2019-12-16] MEDS: Cisatracurium 200 MG in 0.9 % Sodium Chloride 180 ML IVC SCH ×3 (04:14→19:40)
[2019-12-16 04:23] LABS: ABG Base Excess -2 mEq/L (-2 to 3); ABG HCO3 24 mEq/L (21-27); ABG Oxygen Saturation 87 % (95-98); ABG PCO2 45 mmHg (35-45); ABG PH 7.34 pH Units (7.32-7.45); ABG PO2 58 mmHg (85-104); ABG TCO2 25 mEq/L (20-26); Blood Gas Modality ASSIST CONTROL; Blood Gas VT 450 cc
[2019-12-16 04:28] LABS: Basophils % 0.1 %; Eosinophils # 0.1 K/mcL (0.0-0.6); Eosinophils % 0.9 %; Hematocrit 25.1 % (35.3-44.9); Hemoglobin 7.7 g/dL (11.5-15.4); Immature Granulocytes % 2.6 % (0-4); Lymphocytes # 0.6 K/mcL (0.6-4.6); Mean Corpuscular HGB Conc 30.7 g/dL (31.6-35.5); Mean Corpuscular Hemoglobin 29.5 pg (28.0-33.3); Mean Corpuscular Volume 96.2 fL (83.0-100.0); Mean Platelet Volume 11.1 fL (9.4-12.4); Monocytes # 0.4 K/mcL (0.0-1.3); Monocytes % 3.2 %; Neutrophils # 9.8 K/mcL (1.6-8.9); Nucleated Red Blood Cells 0.2 /100 WBC (0); Platelet Count 160 K/mcL (140-400); Red Blood Count 2.61 M/mcL (3.82-4.97); Red Cell Distribution Width 14.7 % (11.5-14.5); Segmented Neutrophils % 88.2 %; White Blood Count 11.1 K/mcL (4.3-11.1)
[2019-12-16 04:50] LABS: Albumin 2.8 g/dL (3.5-5.7); Bilirubin,Total 0.6 mg/dL (0.3-1.0); Calcium 8.5 mg/dL (8.6-10.3); Globulin 2.7 g/dL (2.4-3.5); Magnesium 1.7 mg/dL (1.6-2.6); Phosphorous 4.9 mg/dL (2.7-4.5); Potassium 3.3 mEq/L (3.5-5.1); Total Protein 5.5 g/dL (6.4-8.9)
[2019-12-16] MEDS: Artificial Tears SOLN 15 ML BOTTLE BOTH EYES SCH ×7 (04:55→23:39)
[2019-12-16] MEDS: Heparin 25,000UNIT/250ML 1/2NS 25,000 UNIT/250 ML IV.SOLN IVC SCH ×2 (06:00→14:21)
[2019-12-16] MEDS: Bumetanide 1 MG/4 ML VIAL IVP SCH ×2 (08:10→17:04)
[2019-12-16] MEDS: Chlorhexidine Rinse 15 ML MOUTHWASH MM SCH ×2 (08:10→19:41)
[2019-12-16] MEDS: Dexamethasone 4 MG/ML VIAL IVP SCH (08:11)
[2019-12-16] MEDS: Pantoprazole 40 MG VIAL IVP SCH (08:12)
[2019-12-16] MEDS: Aspirin 81 MG TAB.CHEW GTUBE SCH (08:14)
[2019-12-16] MEDS: Docusate Oral Soln 100 MG/10 ML UDC GTUBE SCH ×2 (08:14→19:41)
[2019-12-16] MEDS: Albumin 25% 12.5gm/50mL 12.5 GM/50 ML IV.SOLN IVPB SCH ×2 (08:14→19:41)
[2019-12-16] MEDS: FentaNYL (PF) 2,500 MCG/50 ML IV.SOLN IVC SCH ×2 (08:44→21:00)
[2019-12-16] MEDS: Nystatin POWDER 30 GM BOTTLE TP SCH ×3 (11:41→19:42)
[2019-12-17] MEDS: Cisatracurium 200 MG in 0.9 % Sodium Chloride 180 ML IVC SCH ×3 (03:09→19:28)
[2019-12-17] MEDS: Piperacillin/Tazobactam 3.375 GM in 0.9 % Sodium Chloride Mini Bag 100 ML IVPB SCH ×3 (03:24→18:05)
[2019-12-17] MEDS: Ipratropium 1 PUFF INHALER IH SCH ×4 (03:55→21:44)
[2019-12-17] MEDS: Artificial Tears SOLN 15 ML BOTTLE BOTH EYES SCH ×5 (03:56→20:23)
[2019-12-17] MEDS: Norepinephrine 4 MG/254 ML IV.SOLN IVC SCH ×2 (04:23→13:48)
[2019-12-17] MEDS: Heparin 25,000UNIT/250ML 1/2NS 25,000 UNIT/250 ML IV.SOLN IVC SCH ×2 (04:24→13:17)
[2019-12-17 04:33] LABS: ABG Base Excess -2 mEq/L (-2 to 3); ABG HCO3 26 mEq/L (21-27); ABG Oxygen Saturation 92 % (95-98); ABG PCO2 67 mmHg (35-45); ABG PO2 80 mmHg (85-104); ABG TCO2 28 mEq/L (20-26); Blood Gas Modality ASSIST CONTROL; Blood Gas VT 450 cc
[2019-12-17 04:39] LABS: Basophils % 0.2 %; Eosinophils # 0.1 K/mcL (0.0-0.6); Eosinophils % 1.2 %; Immature Granulocytes % 3.8 % (0-4); Lymphocytes # 0.8 K/mcL (0.6-4.6); Mean Corpuscular HGB Conc 30.8 g/dL (31.6-35.5); Mean Corpuscular Hemoglobin 29.7 pg (28.0-33.3); Mean Corpuscular Volume 96.7 fL (83.0-100.0); Mean Platelet Volume 10.6 fL (9.4-12.4); Monocytes # 0.4 K/mcL (0.0-1.3); Monocytes % 3.7 %; Neutrophils # 8.2 K/mcL (1.6-8.9); Nucleated Red Blood Cells 0.5 /100 WBC (0); Platelet Count 150 K/mcL (140-400); Red Blood Count 2.69 M/mcL (3.82-4.97); Red Cell Distribution Width 15.1 % (11.5-14.5); Segmented Neutrophils % 83.1 %; White Blood Count 9.9 K/mcL (4.3-11.1)
[2019-12-17 04:51] LABS: Alanine Aminotransferase 14 Units/L (7-52); Albumin 2.8 g/dL (3.5-5.7); Alkaline Phosphatase 95 Units/L (34-104); Aspartate Amino Transferase 10 Units/L (13-39); BUN/Creatinine Ratio 75 (6-26); Bilirubin,Total 0.6 mg/dL (0.3-1.0); Blood Urea Nitrogen 82 mg/dL (6-20); Calcium 8.6 mg/dL (8.6-10.3); Carbon Dioxide 24 mEq/L (23-29); Chloride 108 mEq/L (98-107); Globulin 2.7 g/dL (2.4-3.5); Glucose 96 mg/dL (70-105); Magnesium 1.7 mg/dL (1.6-2.6); Osmolality,Calculated 325 (280-300); Phosphorous 4.7 mg/dL (2.7-4.5); Potassium 3.3 mEq/L (3.5-5.1); Sodium 145 mEq/L (136-145); Total Protein 5.5 g/dL (6.4-8.9); eGFR For African Americans > 60 (> 60); eGFR For Non-African Americans 52 (> 60)
[2019-12-17] MEDS: Pantoprazole 40 MG VIAL IVP SCH (07:39)
[2019-12-17] MEDS: Dexamethasone 4 MG/ML VIAL IVP SCH (07:40)
[2019-12-17] MEDS: Chlorhexidine Rinse 15 ML MOUTHWASH MM SCH ×2 (07:40→20:26)
[2019-12-17] MEDS: Albumin 25% 12.5gm/50mL 12.5 GM/50 ML IV.SOLN IVPB SCH ×2 (07:40→20:22)
[2019-12-17] MEDS: Aspirin 81 MG TAB.CHEW GTUBE SCH (07:42)
[2019-12-17] MEDS: Nystatin POWDER 30 GM BOTTLE TP SCH ×3 (07:42→20:23)
[2019-12-17] MEDS: FentaNYL (PF) 2,500 MCG/50 ML IV.SOLN IVC SCH (10:41)
[2019-12-17] MEDS: Bumetanide 1 MG/4 ML VIAL IVP SCH ×2 (11:11→17:46)
[2019-12-17] MEDS: Docusate Oral Soln 100 MG/10 ML UDC GTUBE SCH ×2 (12:09→20:22)
[2019-12-18] MEDS: Artificial Tears SOLN 15 ML BOTTLE BOTH EYES SCH ×3 (00:50→11:29)
[2019-12-18] MEDS: FentaNYL (PF) 2,500 MCG/50 ML IV.SOLN IVC SCH ×2 (01:45→12:51)
[2019-12-18] MEDS: Cisatracurium 200 MG in 0.9 % Sodium Chloride 180 ML IVC SCH (03:05)
[2019-12-18] MEDS: Piperacillin/Tazobactam 3.375 GM in 0.9 % Sodium Chloride Mini Bag 100 ML IVPB SCH (03:08)
[2019-12-18] MEDS: Ipratropium 1 PUFF INHALER IH SCH ×3 (03:10→14:52)
[2019-12-18 05:04] LABS: Albumin 2.9 g/dL (3.5-5.7); Bilirubin,Total 0.7 mg/dL (0.3-1.0); Calcium 8.4 mg/dL (8.6-10.3); Magnesium 1.7 mg/dL (1.6-2.6); Potassium 3.4 mEq/L (3.5-5.1); Total Protein 5.9 g/dL (6.4-8.9)
[2019-12-18] MEDS: Heparin 25,000UNIT/250ML 1/2NS 25,000 UNIT/250 ML IV.SOLN IVC SCH (05:39)
[2019-12-18 06:11] LABS: ABG Base Excess -6 mEq/L (-2 to 3); ABG HCO3 25 mEq/L (21-27); ABG Oxygen Saturation 94 % (95-98); ABG PCO2 86 mmHg (35-45); ABG PH 7.07 pH Units (7.32-7.45); ABG PO2 104 mmHg (85-104); ABG TCO2 27 mEq/L (20-26); Blood Gas Modality AF; Blood Gas VT 440 cc
[2019-12-18] MEDS: Norepinephrine 4 MG/254 ML IV.SOLN IVC SCH (06:57)
[2019-12-18] MEDS ORDERED: *HR* LORazepam 2 MG/ML VIAL IVP PRN ×2 (10:37→13:11)
[2019-12-18] MEDS: Docusate Oral Soln 100 MG/10 ML UDC GTUBE SCH (11:29)
[2019-12-18] MEDS: Albumin 25% 12.5gm/50mL 12.5 GM/50 ML IV.SOLN IVPB SCH (11:29)
[2019-12-18] MEDS: Chlorhexidine Rinse 15 ML MOUTHWASH MM SCH (11:29)
[2019-12-18] MEDS: Aspirin 81 MG TAB.CHEW GTUBE SCH (11:29)
[2019-12-18] MEDS: Bumetanide 1 MG/4 ML VIAL IVP SCH (11:29)
[2019-12-18] MEDS: Pantoprazole 40 MG VIAL IVP SCH (11:30)
[2019-12-18] MEDS: Nystatin POWDER 30 GM BOTTLE TP SCH (11:30)
[2019-12-18] MEDS: Dexamethasone 4 MG/ML VIAL IVP SCH (11:30)
[2019-12-18 12:06] VITALS: BP 90/40
[2019-12-18] MEDS ORDERED: *HR* LORazepam 2 MG/ML VIAL ONE (12:48)
[2019-12-18] MEDS ORDERED: Atropine Sulfate 1% 40 DROP/2 ML BOTTLE SL PRN (13:08)
[2019-12-19] MEDS ORDERED: *HR* Heparin 5,000 UNIT/ML VIAL SQ SCH (06:00)
== END 2019-12-18 16:02 | disposition expired | DRG 207 ==
LOC: EMEROOARM 20:07 → 2NENU 20:07 → SUATTDRO 21:53 → 2NENU 22:05
PROVIDERS: ADMIT Family Medicine; ATTEND Internal Medicine